=== PATIENT | female | born 1960 | race Caucasian/White ===

== ENCOUNTER 2018-02-04 00:27 | Inpatient (IN) | payer OTHER, SELFPAY ==
[2018-02-04] VITALS (11 sets, daily range): BP systolic 114–134; BP diastolic 63–81; PULSE 82–104; RESP 16–92; TEMP 36.5–37.1; O2SAT 89–98; BMI 38.2; BMI 43.5
[2018-02-04 02:09] LABS: Microscopic,Cath URINE MICROSCOPIC (MICROSCOPIC)
[2018-02-04 02:11] LABS: Basophils % 0.3 % (0.1-2.0); Eosinophils % 0.1 % (0.1-12.0); Hematocrit 45.3 % (37.0-47.0); Lymphocytes % 10.5 K/mm3 (10-50); Mean Corpuscular Hemoglobin 32.7 pg (27.0-31.2); Mean Corpuscular Volume 105.4 fl (81-99); Mean Platelet Volume 7.6 fl (7.4-10.4); Monocytes # 0.5 K/mm3 (0.1-1.0); Monocytes % 4.6 % (1.7-9.3); Neutrophils # 8.4 K/mm3 (1.8-7.8); Neutrophils % 84.5 % (37.0-80.0); Platelet Count 319 K/mm3 (142-424); Red Cell Distribution Width 15.5 % (11.5-17.5); White Blood Count 9.9 K/mm3 (4.8-10.8)
--- NOTE | 2018-02-04 02:12 | XR_ITS ---
XR chest portable COMPARISON: None HISTORY: Shortness of breath TECHNIQUE: Portable upright chest FINDINGS: This a fairly good inspiration. There is gross generalized cardio megaly with a somewhat globular configuration to the cardiac silhouette. The vascularity is normal with no obvious pulmonary congestion seen. Is no pleural fluid. There are moderate degenerative changes of both shoulders. IMPRESSION: Gross joint cardio megaly with globular configuration suggesting possibility of cardiomyopathy and/or pericardial effusion and suggest clinical correlation
[2018-02-04 02:24] LABS: Appearance,Urine/Cath CLEAR (Clear); Blood, Urine/Cath Negative (Negative); Color,Urine/Cath YELLOW (Yellow); Glucose,Urine/Cath (UA) Negative (Negative); Ketones,Urine/Cath TRACE (Negative); Leukocyte Esterase,Cath Negative (Negative); Nitrate,Cath Negative (Negative); PH,Urine/Cath 5.5 (5.0-8.5); Protein,Urine/Cath 2+ (Negative); Specific Gravity, Urine/Cath >= 1.030 (1.005-1.030); Urobilinogen,Cath 0.2 EU/dl (0.2)
--- NOTE | 2018-02-04 02:24 | HMH.EDOD ---
ED Disposition Clinical Impression: Renal insufficiency, Overweight Altered mental status Qualifiers: Altered mental status type: unspecified Qualified Code(s): R41.82 - Altered mental status, unspecified Diabetes Qualifiers: Diabetes mellitus type: type 2 Diabetes mellitus gandy dancer insulin use: with gandy dancer use Diabetes mellitus complication status: with unspecified complications Qualified Code(s): E11.8 - Type 2 diabetes mellitus with unspecified complications; Z79.4 - assisted (current) use of insulin Disposition: Admitted as Observation Condition on Discharge: Good - Critical Care Critical Care Time: Yes Attestation: On 02/04/18, the high probability of a clinically significant, sudden or life threatening deterioration of the following system(s) required my full and direct attention, intervention and personal management. The time I documented below is in addition to time spent performing reported procedures but includes the following listed in this critical care notation. Total Critical Care Time: 60 Vital system(s) involved:: Central Nervous System My critical care processes included: Assessment & monitoring of V/S, Initial and Re-exams, Data Review/Interpretation, Coordinating Care, Medication Orders and management, Documentation Medical Decision Making - Medical Records Medical records reviewed: Yes: I reviewed the patient's medical records. - Randy Inquiry Pt receiving controlled substance: No Vital Signs: 02/04/18 00:34 02/04/18 01:58 Temperature Source Oral Pulse Rate [Left Radial] 82 93 H Respiratory Rate 28 H Blood Pressure [Left Arm] 123/75 120/77 Blood Pressure Mean [Left Arm] 91 91 Blood Pressure Source [Left Arm] Automatic Cuff Automatic Cuff Blood Pressure Position [Left Arm] Supine Supine 02 Sat by Pulse Oximetry 89 L 92 L Oxygen Delivery Method Nasal Cannula Nasal Cannula Oxygen Flow Rate (LPM) 2 3 - Lab Data Lab results reviewed: Yes: I reviewed the patient's lab results. Lab Results 02/04/18 01:45: WBC 9.9, RBC 4.30, Hgb 14.0, Hct 45.3, MCV 105.4 H, MCH 32.7 H, MCHC 31.0 L, RDW 15.5, Plt Count 319, MPV 7.6, Neut % (Auto) 84.5 H, Lymph % (Auto) 10.5, Izard % (Auto) 4.6, Eos % (Auto) 0.1, Baso % (Auto) 0.3, Neut # (Auto) 8.4 H, Lymph # (Auto) 1.0, Izard # (Auto) 0.5, Eos # (Auto) 0.0, Baso # (Auto) 0.0 02/04/18 01:45: Urine Color Yellow, Urine Appearance Clear, Urine pH 5.5, Ur Specific Meadow >= 1.030, Urine Protein 2+, Urine Glucose (UA) Negative, Urine Ketones Trace, Urine Blood Negative, Urine Nitrate Negative, Urine Bilirubin Negative, Urine Urobilinogen 0.2, Ur Leukocyte Esterase Negative, Urine WBC 3-5, Ur Squamous Epith Cells 3-5, Ur Transition Epith Cell 3-5 02/04/18 01:45: Sodium 139, Potassium 4.1, Chloride 102, Carbon Dioxide 23, Anion Gap 18.1 H, BUN 30 H, Creatinine 2.32 H, Estimated Creat Clear 43, Estimated GFR 21 L, Est GFR ( Amer) 26 L, Glucose 165 H, Calcium 9.3, Total Bilirubin 0.2, AST 25, ALT 27, Alkaline Phosphatase 134 H, Total Protein 7.5, Albumin 3.6, Globulin 3.9 H, Albumin/Globulin Ratio 0.9 L 02/04/18 01:45: Urine Opiates Screen Positive H, Ur Barbituates Screen Negative, Ur Phencyclidine Scrn Negative, Ur Amphetamines Screen Positive H, U Methamphetamines Scrn Negative, U Benzodiazepines Scrn Negative, Urine Cocaine Screen Negative, U Marijuana (THC) Screen Negative 02/04/18 01:45: Salicylates 8.7, Acetaminophen 0 L, Plasma/Serum Alcohol 0 02/04/18 01:45: Troponin I 0.07 H 02/04/18 01:45: B-Natriuretic Peptide 769 H Result diagrams: 02/04/18 01:45 02/04/18 01:45 Orders (Tests/Meds): ED MEDICATIONS Discontinued Medications Generic Name Dose Route Start Last Admin Trade Name Katie PRN Reason Stop Dose Admin Furosemide 40 mg 02/04/18 04:42 02/04/18 05:17 Lasix 40mg/4ml Vial IV 02/04/18 04:43 40 mg ONCE ONE Administration Sodium Chloride 1,000 mls @ 999 mls/hr 02/04/18 01:00 02/04/18 00:58 Sod Chlor 0.9% 1000ml Bag IV
[2018-02-04 02:28] LABS: Amphetamine/Metha Screen,Urine Positive ng/mL (<1000); Barbiturates Screen,Urine Negative ng/mL (<200); Benzodiazepines Screen,Urine Negative ng/mL (200); Bilirubin,Cath Negative (Negative); Cannabinoid Screen,Urine Negative ng/mL (<50); Cocaine Screen,Urine Negative ng/g (<300); Methadone Screen,Urine Negative ng/mL (<300); Opiate Screen,Urine Positive ng/mL (<300); Phencyclidine Screen,Urine Negative ng/mL (<25)
[2018-02-04 02:30] LABS: Amorphous Sediment,Ur/Cath Trace /lpf
[2018-02-04 02:31] LABS: Salicylate 8.7 mg/dL (2.8-20.0)
[2018-02-04 02:33] LABS: Alanine Aminotransferase 27 U/L (12-78); Albumin Level 3.6 gm/dL (3.4-5.0); Albumin/Globulin Ratio 0.9 (1.1-1.8); Alkaline Phosphatase 134 U/L (46-116); Anion Gap 18.1 mEq/L (5-15); Aspartate Amino Transferase 25 U/L (15-37); Bilirubin,Total 0.2 mg/dL (0.2-1.0); Blood Urea Nitrogen 30 mg/dL (7-18); Calcium 9.3 mg/dL (8.5-10.1); Carbon Dioxide 23 mmol/L (21.0-32.0); Chloride 102 mmol/L (98-107); Creatinine Clearance Estimated 43 mL/min (0-300); Creatinine,Serum 2.32 mg/dL (0.55-1.02); Estimated Glomerular Filt Rate 21 ml/min (>60); GFR (African American) 26 ML/MIN (>60); Globulin 3.9 gm/dl (1.3-3.2); Glucose 165 mg/dL (74-106); Potassium 4.1 mmoL/L (3.5-5.1); Sodium 139 mmol/L (136-145); Total Protein,Serum 7.5 gm/dL (6.4-8.2)
[2018-02-04 02:36] LABS: Acetaminophen 0 ug/mL (10-30); Ethyl Alcohol 0 mg/dL (0-99)
--- NOTE | 2018-02-04 03:11 | CT_ITS ---
CT chest wo con COMPARISON: Portable upright chest same date HISTORY: Shortness of breath, smoking history TECHNIQUE: Multiaxial scans obtained from the thoracic inlet the hemidiaphragms and were performed without IV contrast. Sagittal and coronal reformats were evaluated as well. FINDINGS: This a fairly good inspiration. The screw mediastinum is unremarkable, there are couple normal-sized nodes in the prevascular space. There is gross generalized cardio megaly with predominant left ventricular enlargement. The small pericardial effusion. There is coronary artery calcification. There is a small right pleural effusion the posterior gutter versus mild chronic pleural scarring. Lung windows show mild chronic scarring or atelectasis at the right base. There is no acute pneumonic infiltrate. There is no significant vascular congestion. There are calcified left hilar nodes and is a calcified granuloma left posterior gutter. There are mild multilevel degenerative changes of the lower thoracic spine. IMPRESSION: Gross generalized cardio megaly with only a tiny pericardial effusion noted. With this degree of cardiac enlargement with essentially normal pulmonary vascularity one must consider cardiomyopathy.
--- NOTE | 2018-02-04 03:23 | PC.NURSE ---
RT at bedside collecting abg
--- NOTE | 2018-02-04 03:24 | PC.NURSE ---
Consent faxed to [facility] to obtain previous medical records.
[2018-02-04 03:26] LABS: Troponin I 0.07 ng/ml (0.00-0.06)
--- NOTE | 2018-02-04 03:39 | PC.NURSE ---
Dr. Santos at bedside.
--- NOTE | 2018-02-04 03:44 | PC.NURSE ---
Pt to rad.
--- NOTE | 2018-02-04 04:37 | PC.NURSE ---
Dr. Santos discussing pt care with Dr. Smith.
--- NOTE | 2018-02-04 04:47 | PC.NURSE ---
Pt to be admitted per Dr. Smith.
[2018-02-04 06:04] LABS: Troponin I 0.18 ng/ml (0.00-0.06)
[2018-02-04 06:09] LABS: T4 (Thyroxine) 7.1 ug/dl (4.7-13.3); Thyroid Stimulating Hormone 1.43 uIU/ml (0.358-3.740)
--- NOTE | 2018-02-04 06:56 | PC.NURSE ---
Pt son called this nurse to obtain information on pt, this nurse notified pt son that its against HIPPA violation to give out any information on his mother and that shes stable. Pt son cursed at nurse and stated This is my f*cking mother I have the right to know information about my mother This nurse once against told son that I cannot give information over the phone. 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 Chris Caldera RN, wash house worker notified.
--- NOTE | 2018-02-04 07:54 | PC.NURSE ---
Pt not alert at this time, unable to obtain medical hx, medication hx, or do admission. Pt will not follow commands or answers questions but does respond to voice.
--- NOTE | 2018-02-04 07:56 | PC.NURSE ---
Report to Hansel Menard RN
--- NOTE | 2018-02-04 08:21 | HMH.HP ---
*Admission Date: 02/04/18 *Chief complaint: Metal status changes/obtundation *History of present illness: 57-year-old white female, afflicted with morbid obesity, several other medical problems related to this, with a recent admission in [facility] and an ER visit in [facility] where she left AMA after being evaluated there for shortness of air and possible cardiac disease. She returned to her home in [place], where her daughter called EMS because she was unable to be aroused. EMS arrived, gave her a dose of naloxone which improve her situation temporarily. She then arrived here at the emergency department. Found to be significantly obtunded. The locks on would arouse her for a brief period of time but then she would return back to a heavy obtunded state. Drug screen showed opiates, consistent with pain medicine that she is prescribed, as well as amphetamines, inconsistent with her medication profile. She is however, on several other controlled substances including gabapentin. She also has classic pickwickian symptoms/sleep apnea symptoms but is never been diagnosed with this. Emergency department evaluation also showed cardiomegaly on imaging, acute renal insufficiency/kidney injury with creatinine of 2.3 and moderately elevated troponin levels. She is admitted for observation, holding of her sedating medications, and evaluation for further medical problems. This morning she is arousable with loud verbal stimuli and sternal rub and is able to have 1 word answers to questions, but immediately falls back to sleep. Of note her pulse oximetry readings have been normal on 4 L nasal cannula. 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: other - Psychiatric History Expresses thoughts of harming self/others: None Suicide Plan Description: No Plan *Family Hx:: Unable to obtain Review of Systems - Review of Systems Review of systems:: unable to obtain - *Neurologic Reports other, Denies seizure-like activity Meds Home Medications Medication Instructions Recorded Confirmed Type Allopurinol [Allopurinol 300mg 1 tab PO DAILY 02/04/18 02/04/18 History tablet] Amitriptyline HCl [Elavil 25mg 1 tab PO HS 02/04/18 02/04/18 History tablet] Baclofen [Lioresal 10mg tablet] 1 tab PO BID 02/04/18 02/04/18 History Escitalopram Oxalate 10 mg PO DAILY 02/04/18 02/04/18 History Furosemide [Furosemide 20mg Tab] 1 tab PO NEEDED PRN 02/04/18 02/04/18 History Gabapentin [Neurontin 600mg 1 tab PO TID 02/04/18 02/04/18 History tablet] Ibuprofen [Ibuprofen 800mg Tab] 1 tab PO TID 02/04/18 02/04/18 History Loratadine [Claritin 10mg Tablet] 1 tab PO DAILY 02/04/18 02/04/18 History Metformin HCl [Metformin HCl] 1 tab PO BID 02/04/18 02/04/18 History OLANZapine [Olanzapine] 1 tab PO DAILY 02/04/18 02/04/18 History Oxycodone HCl/Acetaminophen 10 mg PO TID 02/04/18 02/04/18 History [Oxycodone W/Apap 325mg Tablet] Potassium Chloride [Pot Chlor 10 1 tab PO DAILY 02/04/18 02/04/18 History mEq Tab] Pravastatin Sodium [Pravachol] 40 mg PO DAILY 02/04/18 02/04/18 History Topiramate [Topiramate] 1 tab PO DAILY 02/04/18 02/04/18 History Trazodone HCl 100 mg PO HS 02/04/18 02/04/18 History raNITIdine HCl [Ranitidine HCl] 150 mg PO DAILY 02/04/18 02/04/18 History Allergies Allergy/AdvReac Type Severity Reaction Status Date / Time No Known Allergies Allergy Verified 02/04/18 00:52 Exam Vital signs and Labs for Last 24 Hours: Temp Pulse Resp BP Pulse Ox 97.8 F 84 16 129/77 98 02/04/18 07:36 02/04/18 07:36 02/04/18 07:36 02/04/18 07:36 02/04/18 07:36 I & O for Last 24 hours: Intake & Output
--- NOTE | 2018-02-04 08:24 | P.HP_ITS ---
*Admission Date: 02/04/18 *Chief complaint: Metal status changes/obtundation *History of present illness: 57-year-old white female, afflicted with morbid obesity, several other medical problems related to this, with a recent admission in [facility] and an ER visit in [facility] where she left AMA after being evaluated there for shortness of air and possible cardiac disease. She returned to her home in [place], where her daughter called EMS because she was unable to be aroused. EMS arrived, gave her a dose of naloxone which improve her situation temporarily. She then arrived here at the emergency department. Found to be significantly obtunded. The locks on would arouse her for a brief period of time but then she would return back to a heavy obtunded state. Drug screen showed opiates, consistent with pain medicine that she is prescribed , as well as amphetamines, inconsistent with her medication profile. She is however, on several other controlled substances including gabapentin. She also has classic pickwickian symptoms/sleep apnea symptoms but is never been diagnosed with this. Emergency department evaluation also showed cardiomegaly on imaging, acute renal insufficiency/kidney injury with creatinine of 2.3 and moderately elevated troponin levels. She is admitted for observation, holding of her sedating medications, and evaluation for further medical problems. This morning she is arousable with loud verbal stimuli and sternal rub and is able to have 1 word answers to questions, but immediately falls back to sleep. Of note her pulse oximetry readings have been normal on 4 L nasal cannula. 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 - Psychiatric History Expresses thoughts of harming self/others: None Suicide Plan Description: No Plan *Family Hx:: Unable to obtain Review of Systems - Review of Systems Review of systems:: unable to obtain - *Neurologic Reports other, Denies seizure-like activity Meds Home Medications Medication Instructions Recorded Confirmed Type Allopurinol [Allopurinol 300mg 1 tab PO DAILY 02/04/18 02/04/18 History tablet] Amitriptyline HCl [Elavil 25mg 1 tab PO HS 02/04/18 02/04/18 History tablet] Baclofen [Lioresal 10mg tablet] 1 tab PO BID 02/04/18 02/04/18 History Escitalopram Oxalate 10 mg PO DAILY 02/04/18 02/04/18 History Furosemide [Furosemide 20mg Tab] 1 tab PO NEEDED PRN 02/04/18 02/04/18 History Gabapentin [Neurontin 600mg 1 tab PO TID 02/04/18 02/04/18 History tablet] Ibuprofen [Ibuprofen 800mg Tab] 1 tab PO TID 02/04/18 02/04/18 History Loratadine [Claritin 10mg Tablet] 1 tab PO DAILY 02/04/18 02/04/18 History Metformin HCl [Metformin HCl] 1 tab PO BID 02/04/18 02/04/18 History OLANZapine [Olanzapine] 1 tab PO DAILY 02/04/18 02/04/18 History Oxycodone HCl/Acetaminophen 10 mg PO TID 02/04/18 02/04/18 History [Oxycodone W/Apap 325mg Tablet] Potassium Chloride [Pot Chlor 10 1 tab PO DAILY 02/04/18 02/04/18 History mEq Tab] Pravastatin Sodium [Pravachol] 40 mg PO DAILY 02/04/18 02/04/18 History Topiramate [Topiramate] 1 tab PO DAILY 02/04/18 02/04/18 History Trazodone HCl 100 mg PO HS 04
--- NOTE | 2018-02-04 08:28 | US_ITS ---
US kidney retroperitoneal comp COMPARISON: None HISTORY: Patient possibly overmedicated, suspect possible renal injury as result. TECHNIQUE: Targeted ultrasound the kidneys FINDINGS: The spleen appears grossly normal. The left kidney measures 11.0 x 4.8 x 5.7 cm and shows a good cortical medullary junction and good cortical thickness with no hydronephrosis. Right kidney measures 13.0 x 5.2 x 5.1 cm and shows a good cortical medullary junction with no hydronephrosis or other abdomen I. There appears be essentially normal vascularity to both kidneys. IMPRESSION: Essentially normal ultrasound kidneys bilaterally
[2018-02-04 09:40] LABS: Troponin I 0.25 ng/ml (0.00-0.06)
[2018-02-04 13:04] LABS: Troponin I 0.27 ng/ml (0.00-0.06)
--- NOTE | 2018-02-04 13:37 | P.CONPHA_ITS ---
[facility] Pharmacy VTE Monitoring - Patient Demographics Admission date: 02/04/18 Report Date: 02/04/18 Time: 13:36 Allergies/Adverse Reactions: Patient Allergies No Known Allergies Allergy (Verified 02/04/18 00:52) Height: 1.65 m Weight: 118.7 kg Patient Problems: Current Active Problems Altered mental status (Acute) Renal insufficiency (Acute) Diabetes (Acute) Overweight (Acute) Elevated troponin (Acute) - VTE Risk Labs: VTE Related Lab Results Hgb 14.0 g/dL (12.2-16.2) 02/04/18 01:45 Hct 45.3 % (37.0-47.0) 02/04/18 01:45 Plt Count 319 K/mm3 (142-424) 02/04/18 01:45 BUN 30 mg/dL (7-18) H 02/04/18 01:45 Creatinine 2.32 mg/dL (0.55-1.02) H 02/04/18 01:45 Estimated Creat Clear 43 mL/min (0-300) 02/04/18 01:45 - Prophylaxis VTE Prophylaxis Ordered?: Yes Types of VTE Prophylaxis: TEDS Knee High Location of Applied Device: Bilateral Lower Extremeties
--- NOTE | 2018-02-04 14:49 | PC.NURSE ---
PATIENT IS EASIER TO WAKE THIS TIME OF SHIFT. SHE STILL CONTINUES TO SLEEP. PATIENT KEEPS TAKING OF CANNULA SO I EXPLAINED THE IMPORTANCE OF O2 AT THIS TIME WITH RA SAT 79. PLACED PATIENT BACK ON 4LNC AND SHE STILL ONLY SAT 87%. PLACED ON 50% VENTI MASK BUT SHE WILL NOT KEEP IT ON AND KEEPS PULLING IT OFF COMPLETELY. SPOKE WITH RT AND WE PLACED PATIENT ON 5LNC AT THIS TIME. SAT IS 92%. NOTIFIED DR PELLETIER AT THIS TIME. PATIENT IS ONLY ORIENTED TO SELF. CALL LIGHT WITHIN REACH WILL CONTINUE TO MONITOR
[2018-02-04 19:13] LABS: POC Glucose,Bedside 160 (70-110)
[2018-02-04 20:50] LABS: POC Glucose,Bedside 150 (70-110)
[2018-02-05] VITALS (11 sets, daily range): BP systolic 109–144; BP diastolic 67–82; PULSE 80–105; RESP 18–20; TEMP 36.5–37.2; O2SAT 91–94
--- NOTE | 2018-02-05 04:43 | PC.NURSE ---
PT HAS BEEN MORE ALERT THIS SHIFT, BUT EXTREMELY RESTLESS. COMPLAINTS OF LOWER BACK PAIN AND HAS RECEIVED TYLENOL TIMES 2 DOSES. EXTREMELY [place] WITH HEARING AID IN PLACE, LEFT EAR. PT HAS SET UP AND DRANK WATER. INFANTE TO BSD WITH CLEAR YELLOW URINE. GOOD OUTPUT.
[2018-02-05 06:14] LABS: POC Glucose,Bedside 130 (70-110)
[2018-02-05 06:57] LABS: Basophils % 0.4 % (0.1-2.0); Eosinophils # 0.1 K/mm3 (0.0-0.4); Eosinophils % 1.1 % (0.1-12.0); Hematocrit 39.5 % (37.0-47.0); Hemoglobin 12.4 g/dL (12.2-16.2); Lymphocytes # 1.5 K/mm3 (0.7-4.5); Lymphocytes % 21.8 K/mm3 (10-50); Mean Corpuscular HGB Conc 31.4 g/dL (31.8-35.4); Mean Corpuscular Hemoglobin 31.7 pg (27.0-31.2); Mean Corpuscular Volume 100.8 fl (81-99); Mean Platelet Volume 7.3 fl (7.4-10.4); Monocytes # 0.3 K/mm3 (0.1-1.0); Monocytes % 4.9 % (1.7-9.3); Neutrophils # 4.9 K/mm3 (1.8-7.8); Neutrophils % 71.9 % (37.0-80.0); Platelet Count 292 K/mm3 (142-424); Red Blood Count 3.92 M/mm3 (4.20-5.40); Red Cell Distribution Width 15.6 % (11.5-17.5); White Blood Count 6.8 K/mm3 (4.8-10.8)
[2018-02-05 07:09] LABS: Blood Urea Nitrogen 23 mg/dL (7-18); Carbon Dioxide 29 mmol/L (21.0-32.0); Chloride 103 mmol/L (98-107); Creatinine Clearance Estimated 49 mL/min (0-300); Creatinine,Serum 1.12 mg/dL (0.55-1.02); Estimated Glomerular Filt Rate 50 ml/min (>60); GFR (African American) 60 ML/MIN (>60); Glucose 136 mg/dL (74-106); Sodium 142 mmol/L (136-145)
--- NOTE | 2018-02-05 08:14 | HMH.ACPN2 ---
Internal Medicine - PN: Subj *Date: 02/05/18 *Time: 08:14 Interval history: Patient is much more alert today, responds to verbal and tactile stimuli. She is somewhat deaf so verbal communication remains somewhat sluggish. She reports no pain, states that she is feeling much better. Exam Vital signs and Labs for Last 24 Hours: Temp Pulse Resp BP Pulse Ox 98.2 F 85 18 131/69 91 L 02/05/18 07:32 02/05/18 07:32 02/05/18 07:32 02/05/18 07:32 02/05/18 07:32 Laboratory Results - last 24 hr 02/04/18 09:15: Troponin I 0.25 H 02/04/18 12:30: Troponin I 0.27 H 02/04/18 16:48: POC Glucose 160 H 02/04/18 20:41: POC Glucose 150 H 02/05/18 06:07: POC Glucose 130 H 02/05/18 06:40: WBC 6.8 D, RBC 3.92 L, Hgb 12.4, Hct 39.5, MCV 100.8 H, MCH 31.7 H, MCHC 31.4 L, RDW 15.6, Plt Count 292, MPV 7.3 L, Neut % (Auto) 71.9, Lymph % (Auto) 21.8, Whitley % (Auto) 4.9, Eos % (Auto) 1.1, Baso % (Auto) 0.4, Neut # (Auto) 4.9, Lymph # (Auto) 1.5, Whitley # (Auto) 0.3, Eos # (Auto) 0.1, Baso # (Auto) 0.0 02/05/18 06:40: Sodium 142, Potassium 3.0 L, Chloride 103, Carbon Dioxide 29 D, Anion Gap 13.0, BUN 23 H, Creatinine 1.12 H D, Estimated Creat Clear 49, Estimated GFR 50 L, Est GFR ( Amer) 60 D, Glucose 136 H I & O for Last 24 hours: Intake & Output 02/02/18 02/03/18 02/04/18 02/05/18 11:59 11:59 11:59 11:59 Intake Total 1225 / 1225 Output Total 4400 / 4400 Balance -3175 / -3175 Weight 261 lb 11.019 oz 258 lb 2.581 oz Narrative: Patient is alert, moving around in bed, responds to commands, heart rate regular. Lungs with minimal rhonchi but good air movement. Abdomen obese. No edema over her obesity. Oropharynx clear. 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 use Diabetes mellitus complication status: with unspecified complications Qualified Code(s): E11.8 - Type 2 diabetes mellitus with unspecified complications; 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 Renal insufficiency issues are also improved. Renal ultrasound showed no evidence of obstruction. Cardiology consult today, cardiomyopathy/elevated troponin. Renal function has improved very nicely which would allow left heart catheterization if indicated.
--- NOTE | 2018-02-05 17:18 | PC.NURSE ---
PATIENT IS SITTING ON THE SIDE OF BED EATING DINNER AT THIS TIME. LUNGS ARE DIMINISHED T/O. PATIENT IS ALERT AND ORIENTED TO PERSON AND PLACE SHE GETS CONFUSED AT TIMES ON THE YEAR OR MONTH. SHE STATES SHE IS FEELING BETTER AND SHE THINKS SHE HAD TO MUCH MEDICINE . INFANTE IS PATENT AND DRAINING TO GRAVITY. URINE IS CLEAR AND YELLOW. PATIENT WILL NOT PUT HER O2 ON BUT HER O2 SAT HAS BEEN IN LOWER 90S. PATIENT REQUESTS NO FINGER STICKS. NO SIGNS OR SYMPTOMS OF HYPER/HYPOGLYCEMIA AT THIS TIME. SEVERAL FAMILY MEMBERS HAVE CALLED TO CHECK ON HER THIS SHIFT. HER SISTER WOULD LIKE HER TO GET A PT/OT EVAL WHILE SHE IS HERE. SHE THINKS SHE WOULD BENEFIT FROM HOME HEALTH FOR THERAPY . CALL LIGHT WITHIN REACH WILL CONTINUE TO MONITOR
--- NOTE | 2018-02-05 19:01 | PC.NURSE ---
REPORT BEING GIVEN TO TEJA SKINNER RN
[2018-02-06] VITALS (7 sets, daily range): BP systolic 116–158; BP diastolic 55–113; PULSE 80–100; RESP 16–18; TEMP 36.6–36.9; O2SAT 80–97
[2018-02-06 01:03] LABS: POC Glucose,Bedside 203 (70-110)
--- NOTE | 2018-02-06 04:22 | PC.NURSE ---
PT HAS RESTED WELL THIS SHIFT. 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 RECHECKED BP AND IT WAS 116/55. VSS THIS AM. PT HAS REFUSED TO HAVE HER FLUIDS HOOKED UP, WELL WEARING HER OXYGEN. HER O2 SAT ON RA IS 92%.NO OTHER CONCERNS AT THIS TIME, WILL CONT TO MONITOR.
--- NOTE | 2018-02-06 05:02 | PC.NURSE ---
PT C/O OF NAUSEA THIS AM. ZOFRAN ADMIN PER DEC.
[2018-02-06 06:15] LABS: POC Glucose,Bedside 157 (70-110)
--- NOTE | 2018-02-06 06:39 | PC.NURSE ---
PT REASSESSED AFTER NOTING RT'S ASSESSMENT OF O2 SAT OF 80% ON 3LNC. PT IS ON 3LNC O2 SAT OF 97% AT THIS TIME.
[2018-02-06 06:52] LABS: Basophils % 0.2 % (0.1-2.0); Eosinophils # 0.1 K/mm3 (0.0-0.4); Eosinophils % 0.8 % (0.1-12.0); Hematocrit 40.4 % (37.0-47.0); Lymphocytes # 1.4 K/mm3 (0.7-4.5); Lymphocytes % 20.5 K/mm3 (10-50); Mean Corpuscular HGB Conc 32.1 g/dL (31.8-35.4); Mean Corpuscular Hemoglobin 31.9 pg (27.0-31.2); Mean Corpuscular Volume 99.5 fl (81-99); Mean Platelet Volume 7.4 fl (7.4-10.4); Monocytes # 0.4 K/mm3 (0.1-1.0); Neutrophils # 4.8 K/mm3 (1.8-7.8); Neutrophils % 72.6 % (37.0-80.0); Platelet Count 298 K/mm3 (142-424); Red Blood Count 4.06 M/mm3 (4.20-5.40); Red Cell Distribution Width 15.5 % (11.5-17.5); White Blood Count 6.6 K/mm3 (4.8-10.8)
[2018-02-06 06:55] LABS: Anion Gap 9.9 mEq/L (5-15); Blood Urea Nitrogen 14 mg/dL (7-18); Carbon Dioxide 31 mmol/L (21.0-32.0); Chloride 103 mmol/L (98-107); Creatinine Clearance Estimated 67 mL/min (0-300); Creatinine,Serum 0.81 mg/dL (0.55-1.02); Estimated Glomerular Filt Rate 72 ml/min (>60); GFR (African American) 88 ML/MIN (>60); Glucose 164 mg/dL (74-106); Sodium 141 mmol/L (136-145)
[2018-02-06 06:57] LABS: Potassium 2.9 mmoL/L (3.5-5.1)
--- NOTE | 2018-02-06 07:22 | PC.NURSE ---
REPORT GIVEN TO Toño GARIBAY RN
--- NOTE | 2018-02-06 08:19 | CA_ITS ---
PROCEDURE: 2-D M-mode and color Doppler study INDICATIONS FOR THE TEST: Chest pain COPD Heart Murmur Tobacco Smoking+ Palpitations Fatigue Syncope Edema Hypertension Diabetes Mellitus+ Rheumatic Fever SOB SORIA Obesity Hyperlipidemia Family History HD Additional History CM PATIENT INFORMATION HEIGHT: 65 WEIGHT:261 GENDER: Female B/P:129/77 2-D/M-MODE INTERPRETATION: 2-D MEASUREMENTS OBSERVED VALUES IN CMS Right Ventricular Dimension (RVDd) 2.7 Interventricular Septum (Thickness)(IVsd) 2.0 Left Ventricular Internal Dimensions(LVIDd) 5.7 Left Ventricular Posterior Wall (Thickness)(LVPWd) 1.9 Aortic Root 3.4 Aortic Cusp Separation 2.2 Left Atrial Dimensions (LAD) 4.8 2D 1. Left atrium is moderately enlarged, left ventricle is mildly dilated, there is mild concentric left ventricular hypertrophy, visually estimated ejection fraction approximately 35-40%, left ventricle is globally hypokinetic. 2. The right atrium is moderately enlarged, right ventricle is mildly dilated with mildly reduced contractility. 3. The aortic valve is minimally thickened and fibrosed. 4. The mitral and tricuspid valve leaflets are minimally thickened and 5. The pulmonic valve is poorly. 6. Pericardial effusion noted. DOPPLER INTERROGATION: Doppler interrogation of the aortic, mitral and tricuspid valvular presence of mild aortic, moderate mitral and moderate tricuspid regurgitation, calculated right ventricular systolic pressure is 61 mm of within consistent with moderate pulmonary hypertension, diastolic parameters are inconclusive. CONCLUSION: 1. Moderate biatrial enlargement, mildly dilated left ventricle, mild concentric left ventricular hypertrophy, visually estimated ejection fraction 35-40% left ventricle is globally hypokinetic. Diastolic parameters are inconclusive. 2. Mild aortic, moderate mitral and tricuspid regurgitation, calculated right ventricular systolic pressure is 62 mmHg consistent with moderate pulmonary hypertension. 3. No significant pericardial effusion noted.
--- NOTE | 2018-02-06 08:43 | HMH.CNCARD ---
History of Present Illness Consult date: 02/06/18 Requesting physician: Vaughn Smith Consult reason: shortness of breath Chief complaint: SOA, decreased consciousness Additional Medical History:: 1. Diabetes mellitus 2. Hypertension 3. Hyperlipidemia 4. Tobacco use, ongoing 5. Family history for coronary artery disease History of present illness: 57-year-old white female, afflicted with morbid obesity, several other medical problems related to this, with a recent admission in [facility] and an ER visit in [facility] where she left AMA after being evaluated there for shortness of air and possible cardiac disease. She returned to her home in [place], where her daughter called EMS because she was unable to be aroused. EMS arrived, gave her a dose of naloxone which improve her situation temporarily. She then arrived here at the emergency department. Found to be significantly obtunded. Naloxone would arouse her for a brief period of time but then she would return back to a heavy obtunded state. Drug screen showed opiates, consistent with pain medicine that she is prescribed, as well as amphetamines, inconsistent with her medication profile. She is however, on several other controlled substances including gabapentin. She also has classic pickwickian symptoms/sleep apnea symptoms but is never been diagnosed with this. Emergency department evaluation also showed cardiomegaly on imaging, acute renal insufficiency/kidney injury with creatinine of 2.3 and moderately elevated troponin levels. She is admitted for observation, holding of her sedating medications, and evaluation for further medical problems. This morning she is arousable with loud verbal stimuli and sternal rub and is able to have 1 word answers to questions, but immediately falls back to sleep. Of note her pulse oximetry readings have been normal on 4 L nasal cannula. The above per Dr. Smith. The patient denies any history of chest pain. She has had shortness of breath chronically for several months which may be slightly worse. She states she can cough up some phlegm which improves her breathing. She is adamant about going home today. Review of her echocardiogram shows ejection fraction in the 50% range with evidence of moderate to severe mitral regurgitation. 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 [facility] History Medical History: Reports:: Diabetes Mellitus Type 2, Hyperlipidemia, Hypertension Denies:: Cancer, Diabetes Mellitus Type 1, MRSA Amputation: No - *Social History Smoking Status: Current every day smoker Tobacco Type: cigarettes Alcohol Intake: never Last Used Substance: just [employer]FACE [employer] Occupational Status: other - Psychiatric History Expresses thoughts of harming self/others: None Suicide Plan Description: No Plan *Family Hx:: Unable to obtain Meds Home Medications Medication Instructions Recorded Confirmed Type Allopurinol [Allopurinol 300mg 300 mg PO DAILY 02/04/18 02/04/18 History tablet] Amitriptyline HCl [Elavil 25mg 25 mg PO HS 02/04/18 02/04/18 History tablet] Baclofen [Lioresal 10mg tablet] 10 mg PO TID 02/04/18 02/04/18 History Escitalopram Oxalate 10 mg PO DAILY 02/04/18 02/04/18 History Furosemide [Furosemide 20mg Tab] 20 mg PO DAILY PRN 02/04/18 02/04/18 History Gabapentin [Neurontin 600mg 600 mg PO TID 02/04/18 02/04/18 History tablet] Ibuprofen [Ibuprofen 800mg Tab] 800 mg PO TID PRN 02/04/18 02/04/18 History Loratadine [Claritin 10mg Tablet] 10 mg PO DAILY 02/04/18 02/04/18 History Metformin HCl [Metformin HCl] 1,000 mg PO BID 02/04/18 02/04/18 History OLANZapine [Olanzapine] 7.5 mg PO DAILY 02/04/18 02/04/18 History Oxycodone HCl/Acetaminophen 10 - 325 mg PO TID 02/04/18 02/04/18 History [Oxycodone W/Apap 325mg Tablet] Potassium Chloride [Pot Chlor 10 10 meq PO DAILY 02/04/18 02/04/18 History mEq Tab] Pravastatin Sodium [Pravachol] 40 mg PO HS 02/04/18 02/04/18 History Topiramate [Topiramate] 50 mg PO BID 0
--- NOTE | 2018-02-06 08:54 | HMH.DCSUM ---
General - General Admission date: 02/04/18 Discharge date: 02/06/18 HPI HPI: 57-year-old white female, afflicted with morbid obesity, several other medical problems related to this, with a recent admission in [facility] and an ER visit in [facility] where she left AMA after being evaluated there for shortness of air and possible cardiac disease. She returned to her home in [place], where her daughter called EMS because she was unable to be aroused. EMS arrived, gave her a dose of naloxone which improve her situation temporarily. She then arrived here at the emergency department. Found to be significantly obtunded. The locks on would arouse her for a brief period of time but then she would return back to a heavy obtunded state. Drug screen showed opiates, consistent with pain medicine that she is prescribed, as well as amphetamines, inconsistent with her medication profile. She is however, on several other controlled substances including gabapentin. She also has classic pickwickian symptoms/sleep apnea symptoms but is never been diagnosed with this. Emergency department evaluation also showed cardiomegaly on imaging, acute renal insufficiency/kidney injury with creatinine of 2.3 and moderately elevated troponin levels. She is admitted for observation, holding of her sedating medications, and evaluation for further medical problems. This morning she is arousable with loud verbal stimuli and sternal rub and is able to have 1 word answers to questions, but immediately falls back to sleep. Of note her pulse oximetry readings have been normal on 4 L nasal cannula. Hospital Course Hospital Course: Patient was admitted, she was rehydrated, and her creatinine improved back to what appears to be her baseline. Her mental status also improved with cessation and holding of her multiple sedating medications. Cardiology recommended heart catheterization because of her elevated troponins but patient refused. Her airborne operations was unremarkable Echogram showed fairly normal ejection fraction of 50% but significant mitral regurgitation. This morning patient feels much better and wishes to be discharged. Her Snyder catheter is been removed, and if she eats breakfast well she will be discharged home if she can walk around the room without problems stumbling or with mental status changes. We recommended the following interventions: I recommended that she continue some of her medications that can contribute to mental status changes and lethargy as noted in the reconciliation form. She apparently gets multiple medications from multiple sources and goes to a pain clinic in [facility] for oxycodone. This certainly needs to be reevaluated given her hypersomnolence. We started Lasix therapy because of her severe mitral regurgitation. Other medication interventions noted. I have asked that she follow-up with her primary physician this week to assess need for cardiology referral/cardiothoracic surgery referral for her severe mitral regurgitation and shortness of air issues. Objective Vital signs: Temp Pulse Resp BP Pulse Ox 97.9 F 92 H 18 135/88 91 L 02/06/18 08:00 02/06/18 08:00 02/06/18 08:00 02/06/18 08:00 02/06/18 08:00 Narrative: Patient is much more alert. Does not require oxygen this morning. Able to sit up, lungs have bilateral rhonchi in the bases but otherwise much better air entry. Heart rate regular. Murmurs noted although her BMI limits her exam accuracy. She has no edema over her obesity and her abdomen is soft. Results Labs on day of discharge: Labs from last 24 hours 02/06/18 02/06/18 02/06/18 06:15 06:15 06:08 WBC 6.6 RBC 4.06 L Hgb 13.0 Hct 40.4 MCV 99.5 H MCH 31.9 H MCHC 32.1 RDW 15.5 Plt Count 298 MPV 7.4 Neut % (Auto) 72.6 Lymph % (Auto) 20.5 Lawrence % (Auto) 6.0 Eos % (Auto) 0.8 Baso % (Auto) 0.2 Neut # (Auto)
--- NOTE | 2018-02-06 08:57 | P.DS_ITS ---
General - General Admission date: 02/04/18 Discharge date: 02/06/18 HPI HPI: 57-year-old white female, afflicted with morbid obesity, several other medical problems related to this, with a recent admission in [facility] and an ER visit in [facility] where she left AMA after being evaluated there for shortness of air and possible cardiac disease. She returned to her home in [place], where her daughter called EMS because she was unable to be aroused. EMS arrived, gave her a dose of naloxone which improve her situation temporarily. She then arrived here at the emergency department. Found to be significantly obtunded. The locks on would arouse her for a brief period of time but then she would return back to a heavy obtunded state. Drug screen showed opiates, consistent with pain medicine that she is prescribed , as well as amphetamines, inconsistent with her medication profile. She is however, on several other controlled substances including gabapentin. She also has classic pickwickian symptoms/sleep apnea symptoms but is never been diagnosed with this. Emergency department evaluation also showed cardiomegaly on imaging, acute renal insufficiency/kidney injury with creatinine of 2.3 and moderately elevated troponin levels. She is admitted for observation, holding of her sedating medications, and evaluation for further medical problems. This morning she is arousable with loud verbal stimuli and sternal rub and is able to have 1 word answers to questions, but immediately falls back to sleep. Of note her pulse oximetry readings have been normal on 4 L nasal cannula. Hospital Course Hospital Course: Patient was admitted, she was rehydrated, and her creatinine improved back to what appears to be her baseline. Her mental status also improved with cessation and holding of her multiple sedating medications. Cardiology recommended heart catheterization because of her elevated troponins but patient refused. Her clinical research monitor was unremarkable Echogram showed fairly normal ejection fraction of 50% but significant mitral regurgitation. This morning patient feels much better and wishes to be discharged. Her Snyder catheter is been removed, and if she eats breakfast well she will be discharged home if she can walk around the room without problems stumbling or with mental status changes. We recommended the following interventions: I recommended that she continue some of her medications that can contribute to mental status changes and lethargy as noted in the reconciliation form. She apparently gets multiple medications from multiple sources and goes to a pain clinic in [facility] for oxycodone. This certainly needs to be reevaluated given her hypersomnolence. We started Lasix therapy because of her severe mitral regurgitation. Other medication interventions noted. I have asked that she follow-up with her primary physician this week to assess need for cardiology referral/ cardiothoracic surgery referral for her severe mitral regurgitation and shortness of air issues. Objective Vital signs: Temp Pulse Resp BP Pulse Ox 97.9 F 92 H 18 135/88 91 L 02/06/18 08:00 02/06/18 08:00 02/06/18 08:00 02/06/18 08:00 02/06/18 08:00 Narrative: Patient is much more alert. Does not require oxygen this morning. Able to sit up, lungs have bilateral rhonchi in the bases but otherwise much better air entry. Heart rate regular. Murmurs noted although her BMI limits her exam accuracy. She has no edema over her obesity and her abdomen is soft.
== END 2018-02-06 11:28 | disposition home or self-care (01) | DRG 699 ==
LOC: ER 01:15 → 2ND 05:57
PROVIDERS: Admitting Provider Internal Medicine Adolescent Medicine; Emergency Provider Emergency Medicine; Family Provider Family Medicine; PCP Internal Medicine Adolescent Medicine; Visit Provider Internal Medicine Adolescent Medicine
DX: N28.9 Disorder of kidney and ureter, unspecified (principal); E66.2 Morbid (severe) obesity with alveolar hypoventilation; Z68.41 Body mass index [BMI] 40.0-44.9, adult; I45.2 Bifascicular block; R41.82 Altered mental status, unspecified; E11.9 Type 2 diabetes mellitus without complications; F17.210 Nicotine dependence, cigarettes, uncomplicated; L68.0 Hirsutism; R74.8 Abnormal levels of other serum enzymes; E78.5 Hyperlipidemia, unspecified; F15.10 Other stimulant abuse, uncomplicated; I51.7 Cardiomegaly; I34.0 Nonrheumatic mitral (valve) insufficiency; Z79.899 Other long term (current) drug therapy; Z79.84 Long term (current) use of oral hypoglycemic drugs; Z79.891 Long term (current) use of opiate analgesic; Z82.49 Family history of ischemic heart disease and other diseases of the circulatory system
CPT/HCPCS: 36415; 71045; 71250; 76770; 80048; 80053; 80305; 80329; 81001; 82962; 83880; 84436; 84443; 84484; 85025; 87205; 90732; 93005; 93306; 94761; 96365; 96375; 99285; J2310; J2405